=== PATIENT | male | born 1945 | race Caucasian/White ===

== ENCOUNTER → 2019-02-25 | Day surgery (SDC) | payer MEDICARE ==
--- NOTE | 2019-02-19 13:03 | Diagnostic Imaging Report ---
EXAMINATION: CHEST 2 VIEWS INDICATION: Pre-operative COMPARISON: None FINDINGS: LINES/TUBES:None LUNGS:The lungs are hyperinflated. Biapical pleural parenchymal thickening/scarring. No focal consolidation or pulmonary edema. PLEURA:No pleural effusion or pneumothorax. MEDIASTINUM:The cardiomediastinal silhouette appears normal in size and shape. Atherosclerotic calcifications of the tortuous thoracic aorta. BONES/SOFT TISSUES:No acute osseous injury. ABDOMEN:No free air under the diaphragm. IMPRESSION: No focal pneumonia or pulmonary edema. Prominent biapical pleural parenchymal thickening/scarring. Signed by: Edmar Singh MD on 02/19/2019 1:00 PM
[~2019-02-25] MED LIST: ASPIRIN81 MG PO; ATORVASTATIN CA40 MG PO; BUPIVACAINE HCL 0.5% INJ 30 ML VIAL INJ ONE; CEFAZOLIN SOD 1 GM/NS 50ML 100 ML IV ONE; CLOPIDOGREL75 MG PO; COMBIGAN EYE DRO5 ML OU; DEXAMETHASONE SOD PHOS INJ 4 MG/ML VIAL ONE; EPHEDRINE SULFATE INJ 50 MG/10 ML SYR ONE; FENOFIBRATE145 MG PO; FENTANYL CITRATE/PF 100MCG/2 ML INJ ONE; FLOMAX0.4 MG PO; GLYCOPYRROLATE INJ 1MG/ 5 ML SYR ONE; IBUPROFEN IV ONE; LIDOCAINE HCL 2% LOCAL INJ 5 ML SDV VIAL INJ ONE; LOSARTAN POTASS25 MG PO; LUTEIN PO; METFORMIN HCL500 MG PO; METOPROLOL SUCC50 MG PO; NEOSTIGMINE 5 MG/5ML SYR ONE; ONDANSETRON HCL INJ 2MG/ML 2ML 2 MG/ML VIAL ONE; PROPOFOL IV EMULSION 10 MG/ML 20 ML VIAL ONE; ROCURONIUM BROMIDE 10 MG/ML 5ML VIAL ONE; SEVOFLURANE INHAL SOLN 250 ML PEN BTL ONE
--- OUTSIDE RECORDS SUMMARY | 2019-02-25 08:22 | XMS REPORT ---
Author Author [facility] Address Unknown Phone Unavailable Care Team Providers Care Talent Acquisition Coordinator Name Role Phone Genesis OMER Unavailable Unavailable Problems This patient has no known problems. Allergies, Adverse Reactions, Alerts This patient has no known allergies or adverse reactions. Medications This patient has no known medications. Results Test Description Test Time Test Comments Text Results Atomic Results Result Comments CHEST 2 VIEWS 2019-02-19 12:58:00 [place] [address] Patient Name: CARMINE MAYA MR #: [id number] : 1945 Age/Sex: 73/M Req #: [id number] Adm Physician: Ordered by: ANUPAMA OMER MD Report #: [id number] Location: OR Room/Bed: Procedure: [id number] DX/CHEST 2 VIEWS Exam Date: 02/19/19 Exam Time: 1220 REPORT STATUS: Signed EXAMINATION: CHEST 2 VIEWS INDICATION: Pre-operative COMPARISON: None FINDINGS: LINES/TUBES:None LUNGS:The lungs are hyperinflated. Biapical pleural parenchymal thickening/scarring. No focal consolidation or pulmonary edema. PLEURA:No pleural effusion or pneumothorax. MEDIASTINUM:The cardiomediastinal silhouette appears normal in size and shape. Atherosclerotic calcifications of the tortuous thoracic aorta. BONES/SOFT TISSUES:No acute osseous injury. ABDOMEN:No free air under the diaphragm. IMPRESSION: No focal pneumonia or pulmonary edema. Prominent biapical pleural parenchymal thickening/scarring. Signed by: Babar Singh MD on 02/19/2019 1:00 PM Dictated By: BABAR SINGH MD 1300 Transcribed By: GINA on 02/19/19 1300 COPY TO: ANUPAMA OMER MD
--- NOTE | 2019-02-25 12:57 | Operative Report ---
DATE OF PROCEDURE: 02/25/2019 SURGEON: Harpreet Benitez MD PREOPERATIVE DIAGNOSIS: Giant right inguinal scrotal recurrent hernia. POSTOPERATIVE DIAGNOSIS: Giant right inguinal scrotal recurrent hernia. PREOPERATIVE INDICATION: Treat disease, prevent complications related to recurrent inguinal hernia. PROCEDURES: Open repair of recurrent giant inguinal scrotal hernia using mesh. ANESTHESIA: General. FLAT FINISHER: Nils Fleming, internal medicine physician assistant (needed due to complexity of case). FLUIDS: 1 L crystalloid. ESTIMATED BLOOD LOSS: 15 mL. DRAINS: None. COMPLICATIONS: None. SPECIMENS: Hernia sac. GRAFTS: Prolene Hernia System. FINDINGS: Giant indirect inguinal scrotal hernia containing several loops of small intestine. PROCEDURE IN DETAIL: The patient was brought to the operating room and was intubated under general endotracheal anesthesia. He was sterilely prepped and draped in the usual fashion. A preprocedure pause was performed identifying the patient, use of perioperative antibiotics, intended procedure, and staff surgeon. A primary right iliac fossa incision was made. Dissection was carried through the subcutaneous tissues down to the level of the external oblique aponeurosis and aponeurotic incision was made. There was some scar tissue from his previous repair. I then was able to encircle the cord structures as well as the hernia contents with a [place] drain. The hernia sac was then identified and mobilized and freed from the cord structures and ilioinguinal nerve was identified, it was sacrificed with a 3-0 silk suture and divided. It was ligated in continuity. I then was able to clear up the attachments to the hernia sac and reduced the contents of the hernia, which was several feet of small intestine, which was a couple feet of small intestine; this was then reduced through the internal ring. The hernia sac was excised at the level of the internal ring. I then placed the Prolene Hernia System by placing the internal aspect of the round mesh through the internal ring, making sure that there was clear of adhesions to allow the mesh to adhere. The superficial part was then sutured to the conjoint tendon, medially and shelving edge of the inguinal ligament laterally with 2-0 Prolene suture in interrupted fashion. A slit was made in the mesh in order to allow passage of the cord structures. We then verified hemostasis. We irrigated the wound and aspirated dry. External oblique aponeurosis was then reapproximated with 2-0 Vicryl suture in a continuous fashion. Jimy's fascia was reapproximated with Vicryl suture. The skin incision site was closed with 4-0 Monocryl suture in subcuticular fashion, 0.5% bupivacaine was used at the incision site. The patient tolerated the procedure well. Type of wound was type 1, clean. Harpreet Benitez MD Caio/VICTOR MANUELL /[id number]
[2019-02-25 13:30] VITALS: BP 155/63
== END | disposition home or self-care (01) ==
LOC: OR 08:15
PROVIDERS: ATTEND Surgery
DX: K40.91 Unilateral inguinal hernia, without obstruction or gangrene, recurrent (principal); I71.4 Abdominal aortic aneurysm, without rupture; I10 Essential (primary) hypertension; E78.5 Hyperlipidemia, unspecified; E11.9 Type 2 diabetes mellitus without complications; Z01.818 Encounter for other preprocedural examination; Z79.82 Long term (current) use of aspirin; Z79.84 Long term (current) use of oral hypoglycemic drugs; Z79.02 Long term (current) use of antithrombotics/antiplatelets; Z86.73 Personal history of transient ischemic attack (TIA), and cerebral infarction without residual deficits; Z85.51 Personal history of malignant neoplasm of bladder; Z87.891 Personal history of nicotine dependence
CPT/HCPCS: 36415; 49520; 71046; 82948; C1762; C1781; J0690; J1100; J2001; J2405; J2704; J3010; J3490